=== PATIENT | female | born 1990 | race Two or more races ===

== ENCOUNTER 2023-12-25 15:49 | Outpatient (CLI) | payer OTHER | END 2023-12-25 15:50 | disposition home or self-care (01) | LOC: PRENATAL 15:49 | PROVIDERS: ATTEND Obstetrics & Gynecology Maternal & Fetal Medicine | DX: O36.80X0 Pregnancy with inconclusive fetal viability, not applicable or unspecified (principal); Z36.82 Encounter for antenatal screening for nuchal translucency; O09.511 Supervision of elderly primigravida, first trimester; Z3A.13 13 weeks gestation of pregnancy ==

== ENCOUNTER 2024-02-09 13:14 | Outpatient (CLI) | payer OTHER | END 2024-02-09 13:15 | disposition home or self-care (01) | LOC: PRENATAL 13:14 | PROVIDERS: ATTEND Obstetrics & Gynecology Maternal & Fetal Medicine | DX: O35.3XX0 Maternal care for (suspected) damage to fetus from viral disease in mother, not applicable or unspecified (principal); O44.00 Complete placenta previa NOS or without hemorrhage, unspecified trimester; O09.519 Supervision of elderly primigravida, unspecified trimester; Z14.8 Genetic carrier of other disease; Z3A.20 20 weeks gestation of pregnancy ==